=== PATIENT | male | born 1955 | race Two or more races ===

== ENCOUNTER 2019-02-02 19:38 | Emergency (ER) | payer BC ==
--- NOTE | 2019-02-02 20:08 | PDOC ---
Documentation entered by Casey Brantley SCRIBE, acting as scribe for Rocío Santacruz MD. Rocío Santacruz MD: This documentation has been prepared by the Fercho yates Daniel, SCRIBE, under my direction and personally reviewed by me in its entirety. I confirm that the documentation accurately reflects all work, treatment, procedures, and medical decision making performed by me. History of Present Illness - General Chief Complaint: Urinary Problem Stated Complaint: FATIGUE/FREQUENT URINATION Time Seen by Provider: 02/02/19 19:40 History Source: Patient Exam Limitations: No Limitations - History of Present Illness Initial Comments: 02/02/19 19:58 The patient is a 63 year old male with a past medical history of BPH, HTN, and anxiety here today for evaluation of lightheadedness and general unwellness. The patient reports that he flew to [place] from [place] on Tuesday and developed a constant lightheadedness, decreased appetite, increased fluid intake, and increased urination. He also notes that he has been unable to sleep the past 2 nights and that his symptoms worsened today. He reports that he recently had a sinus infection for which he took steroids and an antibiotic. He also notes some facial pressure around the eyes. Patient denies headache. Denies fever, chills. Denies chest pain, shortness of breath. Denies nausea, vomiting, diarrhea, abdominal pain. Denies lower extremity edema. Denies vertigo. Denies dysuria. Allergies: NKA Social History: Confirms occasional alcohol and cigar use. PCP: in [place] Past History - Past Medical History Allergies/Adverse Reactions: Allergies Allergy/AdvReac Type Severity Reaction Status Date / Time No Known Allergies Allergy Unverified 02/02/19 19:39 Home Medications: Ambulatory Orders Amoxicillin/Potassium Clav [Augmentin 875-125 Tablet] 1 each PO BID #20 tablet 02/02/19 Guaifenesin/Dextromethorphan [Coricidin Hbp Softgel] 2 each PO Q6H PRN #30 capsule 02/02/19 Review of Systems - Review of Systems Able to Perform ROS?: Yes Comments:: 02/02/19 19:58 GENERAL/CONSTITUTIONAL: +lightheadedness. No fever or chills. No weakness. HEAD, EYES, EARS, NOSE AND THROAT: +facial pressure. No change in vision. No ear pain or discharge. No sore throat. CARDIOVASCULAR: No chest pain or shortness of breath. RESPIRATORY: No cough, wheezing, or hemoptysis. GASTROINTESTINAL: No nausea, vomiting, diarrhea or constipation. GENITOURINARY: +increased urinary frequency. No dysuria. MUSCULOSKELETAL: No joint or muscle swelling or pain. No neck or back pain. SKIN: No rash NEUROLOGIC: No headache, vertigo, loss of consciousness, or change in strength/ sensation. ENDOCRINE: +decreased appetite. +increased fluid intake. No abnormal weight change. HEMATOLOGIC/LYMPHATIC: No anemia, easy bleeding, or history of blood clots. ALLERGIC/IMMUNOLOGIC: No hives or skin allergy. *Physical Exam - Physical Exam Comments: 02/02/19 20:00 GENERAL: The patient is in no acute distress. HEAD: Normal with no signs of trauma. EYES: PERRLA, EOMI, sclera anicteric, conjunctiva clear. ENT: Ears normal, nares patent, oropharynx clear without exudates. Moist mucous membranes. NECK: Normal range of motion, supple without lymphadenopathy, JVD, or masses. LUNGS: Breath sounds equal, clear to auscultation bilaterally. No wheezes, and no crackles. HEART:Regular rate and rhythm, normal S1 and S2 without murmur, rub or gallop. ABDOMEN: Soft, nontender, normoactive bowel sounds. No guarding, no rebound. No masses palpable. EXTREMITIES: Normal range of motion, no edema. No clubbing or cyanosis. No erythema, or tenderness. NEUROLOGICAL: Cranial nerves II through XII grossly intact. Normal speech. No focal neurological deficits. MUSCULOSKELETAL: Back non-tender to palpation, no CVA tenderness SKIN: Warm, Dry, normal turgor, no rashes or lesions noted. ED Treatment Course - LABORATORY CBC & Chemistry Diagram: 02/02/19 20:05 02/02/19 20:05 Medical Decision Making - Medical Decision Making 02/02/19 20:02 Mr. Hurst is a 63 yo M presenting to the ER with a complaint of feeling lightheaded Pt has a history of HTN and BPH Arrived from his home in [place] two days ago He noted since arriving in [place] that he has had difficulty sleeping He feels lightheaded No chest pain, no headache, no stomach pain No fevers that he knows of He has a h/o BPH Noted increased urinary frequency He is also drinking a lot of fluids Recently treated for sinus infection 02/02/19 20:03 Examination nml I find no evidence of posterior circulation abnormality There is no focal neurological deficit No chest pain on palpation or inspiration No abdominal pain mild periorbital/facial tenderness DD is broad and inclues New onset diabetes, ACS, anemia, electrolyte abnormality, Pt reports possible anxiety related to his son (he had a prior h/o anxiety, was on some medication, does not know the name, no longer takes that) Will do: Labs UA EKG Will Re Assess 02/02/19 20:32 Low risk wells 02/02/19 20:33 Laboratory Tests 02/02/19 20:05 Urine Glucose (UA) Negative Urine Blood Trace-lysed Urine Nitrite Negative Ur Leukocyte Esterase Negative 02/02/19 20:37 NSR rate of 73 bpm, axis nml, intervals nml, no st elevation or depression 02/02/19 20:38 Laboratory Tests 02/02/19 20:05 WBC 12.3 H Hgb 15.4 Hct 46.2 Plt Count 252 02/02/19 21:01 Laboratory Tests 02/02/19 02/02/19 02/02/19 20:05 20:05 20:05 Sodium 136 Potassium 3.7 Chloride 102 Carbon Dioxide 26 BUN 20.0 H Creatinine 1.0 Creatine Kinase 189 Troponin I < 0.03 Acetone, Qual Negative 02/02/19 21:03 Can resume treatment for sinusitis - Augmentin + Coricidin Will ask pt to stay hydrated as BUN elevated Follow up with PMD upon return to [place] 02/02/19 21:10 Laboratory Tests 02/02/19 20:05 Creatine Kinase 189 Creatine Kinase Index 0.6 Pt requesting medications to sleep Pt encouraged to take Melatonin or Benadryl Will not given benzo Return to the Er for any other concerns or complaints *DC/Admit/Observation/Transfer Diagnosis at time of Disposition: Light-headed feeling Sinusitis Qualifiers: Sinusitis location: frontal Chronicity: acute Recurrence: recurrent Qualified Code(s): J01.11 - Acute recurrent frontal sinusitis - Discharge Dispostion Disposition: HOME Condition at time of disposition: Stable Decision to Admit order: No - Prescriptions Prescriptions: Amoxicillin/Potassium Clav [Augmentin 875-125 Tablet] 1 each PO BID #20 tablet Guaifenesin/Dextromethorphan [Coricidin Hbp Softgel] 2 each PO Q6H PRN #30 capsule PRN Reason: congestion - Referrals Referrals: ON STAFF,NOT [Primary Care Provider] - - Patient Instructions Printed Discharge Instructions: DI for Dizziness-Nonvertigo - Post Discharge Activity
[2019-02-02 20:25] VITALS: BP 155/90; PULSE 89; TEMP 98.6; BMI 25.7
[2019-02-02 20:33] LABS: BASO % 0.5 % (0-2.0); EOS % 0.6 % (0-4.5); HEMATOCRIT 46.2 % (35.4-49); HEMOGLOBIN 15.4 GM/dl (11.7-16.9); LYMPH % 19.9 % (8-40); MCHC 33.4 g/dl (32.0-35.9); MEAN CELL VOLUME 95.8 fl (80-96); MEAN PLT VOLUME 9.1 fl (7.5-11.1); MONO % 8.5 % (3.8-10.2); NEUT % 70.5 % (42.8-82.8); PLATELET COUNT 252 K/MM3 (134-434); RBC 4.83 M/mm3 (4.00-5.60); RDW 13.3 % (11.9-15.9); WHITE BLOOD COUNT 12.3 K/mm3 (4.0-10.8)
[2019-02-02 20:43] LABS: ALBUMIN 4.6 g/dl (3.4-5.0); BILIRUBIN,TOTAL 1.3 mg/dl (0.2-1); CALCIUM 9.8 mg/dl (8.5-10); POTASSIUM 3.7 mmol/L (3.5-5.1); TOT PROT 7.3 g/dl (6.4-8.2)
--- NOTE | 2019-02-04 00:05 | EKG ---
Test Reason : Blood Pressure : / mmHG Vent. Rate : 073 BPM Atrial Rate : 073 BPM P-R Int : 120 ms QRS Dur : 090 ms QT Int : 394 ms P-R-T Axes : 049 024 034 degrees QTc Int : 434 ms NORMAL SINUS RHYTHM NORMAL ECG NO PREVIOUS ECGS AVAILABLE Confirmed by SANDEEP MORE MD ([id number]) on 02/04/2019 12:04:44 AM Referred By: MD CHINO Confirmed By:SANDEEP MORE MD
== END 2019-02-02 21:25 | disposition home or self-care (01) ==
LOC: FER 19:38
DX: R42 Dizziness and giddiness (principal); J01.11 Acute recurrent frontal sinusitis
CPT/HCPCS: 36415; 80053; 81003; 81015; 82009; 82550; 82553; 84484; 85025; 87086; 93005; 99282-25